=== PATIENT | female | born 1960 | race Caucasian/White ===

== ENCOUNTER 2016-07-30 20:01 | Emergency (ER) | payer OTHER ==
[2016-07-30 21:09] LABS: HEMOGLOBIN 15.5 gm/dl (12.3-15.3); RED BLOOD COUNT 5.05 M/UL (4.00-5.10)
[2016-07-30 21:25] LABS: BUN/CREATININE RATIO 20 (0-10)
== END 2016-07-31 01:20 | disposition home or self-care (01) ==
LOC: ER1 20:01
PROVIDERS: Emergency Medicine
DX: J44.0 Chronic obstructive pulmonary disease with (acute) lower respiratory infection (principal); J20.9 Acute bronchitis, unspecified
CPT/HCPCS: 36415; 71010; 80053; 83605; 83880; 85025; 87040; 93005; 94640; 94664; 96374; 96375; 99285; J1100; J1956; J7030

== ENCOUNTER → 2020-02-07 | Outpatient (CLI) | payer OTHER ==
[~2020-02-07] MED LIST: ECOTRIN81 MG PO; HYDROCODON-ACE1 EAC4 PO; IBUPROFEN600 MG PO; IMDUR ER TAB 3030 MG PO; LIPITOR40 MG PO; MACROBID 100 M100 MG PO; NITROSTAT0.4 MG SL; OXYBUTYNIN CHLOR5 M1 PO; PLAVIX 75 MG TA75 MG PO; PROTONIX40 MG PO; VENTOLIN HFA 66.7 GM INH
== END ==
LOC: KOH-I 14:42
DX: R10.84 Generalized abdominal pain (principal); K44.9 Diaphragmatic hernia without obstruction or gangrene; K57.30 Diverticulosis of large intestine without perforation or abscess without bleeding
CPT/HCPCS: 74176

== ENCOUNTER 2020-02-09 11:36 | Emergency (ER) | payer OTHER ==
[2020-02-09 12:31] LABS: HEMOGLOBIN 14.5 gm/dl (12.3-15.3); RED BLOOD COUNT 4.81 M/UL (4.00-5.10); WHITE BLOOD COUNT 9.7 K/UL (4.5-11.0)
== END 2020-02-09 15:19 | disposition home or self-care (01) ==
LOC: ER1 11:36
PROVIDERS: Physician Assistant Medical
DX: I73.9 Peripheral vascular disease, unspecified (principal); F17.210 Nicotine dependence, cigarettes, uncomplicated; Z86.79 Personal history of other diseases of the circulatory system; Z95.5 Presence of coronary angioplasty implant and graft; Z95.1 Presence of aortocoronary bypass graft
CPT/HCPCS: 80053; 85025; 93925; 99284

== ENCOUNTER 2020-06-30 22:09 | Emergency (ER) | payer OTHER | END 2020-06-30 22:11 | disposition left against medical advice (07) | LOC: ER1 22:09 | DX: Z53.21 Procedure and treatment not carried out due to patient leaving prior to being seen by health care provider (principal) ==

== ENCOUNTER → 2021-05-23 | Outpatient (CLI) | payer OTHER ==
[~2021-05-23] MED LIST changes: +ELIQUIS5 MG PO; +ISORDIL TAB 3030 MG PO; +METOPROLOL SUCC50 MG PO; +NICOTINE PATCH1 EAC5 TD; +NITROSTAT 0.40.4 MG SL; +PHENERGAN 25 MG25 M1 PO; +PROTONIX 40 MG40 M1 PO; +ZETIA10 MG PO
[2021-05-23 07:09] LABS: HEMOGLOBIN 14.1 gm/dl (12.3-15.3); RED BLOOD COUNT 4.47 M/UL (4.00-5.10); WHITE BLOOD COUNT 8.2 K/UL (4.5-11.0)
== END ==
LOC: CATH 06:21
PROVIDERS: Internal Medicine Cardiovascular Disease
DX: I25.728 Atherosclerosis of autologous artery coronary artery bypass graft(s) with other forms of angina pectoris (principal); I25.84 Coronary atherosclerosis due to calcified coronary lesion; I25.82 Chronic total occlusion of coronary artery; I10 Essential (primary) hypertension; I73.9 Peripheral vascular disease, unspecified; J44.9 Chronic obstructive pulmonary disease, unspecified; E78.00 Pure hypercholesterolemia, unspecified; Z72.0 Tobacco use; Z95.1 Presence of aortocoronary bypass graft; Z20.822 Contact with and (suspected) exposure to COVID-19; Z86.73 Personal history of transient ischemic attack (TIA), and cerebral infarction without residual deficits; Z88.1 Allergy status to other antibiotic agents; Z79.01 Long term (current) use of anticoagulants; Z79.82 Long term (current) use of aspirin; Z98.51 Tubal ligation status; Z82.49 Family history of ischemic heart disease and other diseases of the circulatory system
CPT/HCPCS: 80048; 85025; 85347; 85610; 92978; 93005; 99152; 99153; C1753; C1769; C1887; C1894; J1644; J2250; J3010; J7030; Q9967